=== PATIENT | female | born 1995 | race African-American/Black ===

== ENCOUNTER 2020-01-18 14:43 | Emergency (ER) | payer OTHER ==
[~2020-01-18] VITALS: Ht 167.6 cm; Wt 58.5 kg
[2020-01-18 15:13] LABS: ABSOLUTE MONOCYTES 1.2 thou/uL (0.0-1.2); ABSOLUTE NEUTROPHILS 8.7 thou/uL (1.6-8.1); BASOPHILS 0.3 %; EOSINOPHILS 0.1 %; HEMATOCRIT 34.5 % (37.0-47.0); HEMOGLOBIN 12.2 gm/dL (12.0-15.0); LYMPHOCYTES 16.7 %; MCH 28.3 pg (26.0-34.0); MCHC 35.4 g/dL (28.0-37.0); MCV 79.9 fL (80.0-100.0); MONOCYTES 9.9 %; MPV 6.5 fl. (7.2-11.1); NUCLEATED RBCS 0 /100WBC; PLATELET COUNT* 392 thou/uL (150-400); RBC 4.32 mil/uL (4.20-5.00); RDW-CV 12.5 % (10.5-14.5); WBC 11.9 thou/uL (4.0-11.0)
[2020-01-18 15:19] LABS: CALCIUM 8.9 mg/dL (8.5-10.1); CREATININE 1.1 mg/dL (0.6-1.3); POTASSIUM 3.5 mmol/L (3.5-5.1)
[2020-01-18 15:23] LABS: ALBUMIN 3.8 g/dL (3.4-5.0); TOTAL BILIRUBIN 0.3 mg/dL (<0.1-1.0); TOTAL PROTEIN 11.2 g/dL (6.4-8.2)
[2020-01-18 15:27] LABS: URINE BILIRUBIN NEGATIVE (Negative); URINE BLOOD NEGATIVE (Negative); URINE CLARITY CLEAR; URINE COLOR YELLOW; URINE GLUCOSE-RANDOM NEGATIVE (Negative); URINE KETONES NEGATIVE (Negative); URINE LEUKOCYTES-REFLEX NEGATIVE (Negative); URINE NITRITE-REFLEX NEGATIVE (Negative); URINE PROTEIN NEGATIVE (Negative); URINE UROBILINOGEN 0.2 E.U./dl (0.2-1.0)
[2020-01-18] MEDS ORDERED: NORCO 5-325 TA1 EAC2 PO (17:01)
[2020-01-18] MEDS ORDERED: ONDANSETRON ODT4 MG PO (17:01)
[2020-01-18] MEDS ORDERED: FLOMAX0.4 MG PO (17:01)
[2020-01-18 17:14] VITALS: BP 121/74
== END 2020-01-18 17:14 | disposition home or self-care (01) ==
LOC: M.ERS 14:43
PROVIDERS: Physician Assistant
DX: N20.0 Calculus of kidney (principal)